=== PATIENT | female | born 1965 | race Caucasian/White ===

== ENCOUNTER 2021-04-23 15:57 | Emergency (ER) | payer OTHER, SELFPAY ==
[2021-04-23 16:03] VITALS: BP 143/76; PULSE 82; RESP 20; TEMP 36.3; O2SAT 96
--- NOTE | 2021-04-23 17:21 | ED.SKABFB ---
HPI - Skin/Abscess/Foreign Bdy General Chief complaint: Skin/Abscess/Foreign Body Stated complaint: Rash on Lips Source: patient and RN notes reviewed Limitations: no limitations History of Present Illness HPI narrative: The patient, on multiple meds including for diabetes and here with other 'sick' family members, presents with skin eruption. Patient states she has 1/2-week or more history of pink slightly raised skin eruption on her extremities after working outside and a different rash her lips. Symptoms there are mild, and attributed to recent change in lip balm; she has recently more sun/actinic exposure doing yard work. Discussed possible causes [allergic, infectious(yeast, viral, etc.), vitamin deficiency, etc.] and will treat broadly. She was advised to continue taking B12 and her antivirals prescribed for recurrent fever blisters. Related Data Home Medications Medication Instructions Recorded Confirmed acyclovir 400 mg PO DAILY 04/23/21 04/23/21 albuterol sulfate 2 puff INHALATION QID 04/23/21 04/23/21 buspirone 5 mg PO BID 04/23/21 04/23/21 cyclobenzaprine 10 mg PO TID 04/23/21 04/23/21 fluoxetine 40 mg PO DAILY 04/23/21 04/23/21 fluticasone propionate 2 spray INTRANASAL BID 04/23/21 04/23/21 hydrochlorothiazide 25 mg PO DAILY 04/23/21 04/23/21 ibuprofen 600 mg PO TID PRN 04/23/21 04/23/21 insulin glargine [Lantus U-100 20 unit SUBCUT HS 04/23/21 04/23/21 Insulin] metformin 500 mg PO TID 04/23/21 04/23/21 metoprolol tartrate 100 mg PO BID 04/23/21 04/23/21 mometasone-formoterol [Dulera] 2 puff INHALATION DAILY 04/23/21 04/23/21 montelukast 10 mg PO HS 04/23/21 04/23/21 omeprazole 20 mg PO BID 04/23/21 04/23/21 prazosin 2 mg PO DAILY 04/23/21 04/23/21 trazodone 50 mg PO BID 04/23/21 04/23/21 Allergies Allergy/AdvReac Type Severity Reaction Status Date / Time aspirin AdvReac Intermediate Nose Bleed Verified 04/23/21 16:20 lisinopril AdvReac Intermediate Cough Verified 04/23/21 16:20 Review of Systems Review of Systems: General/Constitutional: No weight loss,fever Eyes: N0: Redness,discharge Ears/Nose/Throat: No: Epistaxis,ear discharge Respiratory: Denies: Hemoptysis Gastrointestinal: No Vomiting, Bleeding-rectal Skin: No Lumps, REPORTS eruption Neurologic: No Focal Weakness,Sz Hematologic: Denies: Petechiae/Purpura Psychiatric: No: Suicida ideationl All Other Systems: Reviewed and Negative [facility] Family History Family History (System 11/28/19 @ 15:35 by Penelope Stokes) Sibling Depression Mother Asthma Family history of bronchitis Social History Social History (System 11/28/19 @ 15:35 by Penelope Stokes) Smoking status: Current every day smoker Comments At time of signature, agree with nursing past medical, surgical, social and family history. There is no relevant family history pertinent to the presenting complaint Exam Narrative: General Appearance: Well nourished/obese, Normocephalic Eye: PERRLA, Conjunctiva clear Ear: External ear normal Nose: Normal nose, Nare clear Mouth/Throat: Evenly distributed, finally blistering skin eruption on the lips Neck Exam: Supple Respiratory: Airway patent, No respiratory distress Musculoskeletal: Moves all extremities, Non tender Skin: Warm, Dry ; small, isolated macular papular skin eruption of left>right lower extremity Neurological: A&O x3 Psychiatric: Normal mood, Normal affect Course Vital Signs Vital signs: Vital Signs Temperature 97.4 F L 04/23/21 16:03 Pulse Rate 82 04/23/21 16:03 Respiratory Rate 20 04/23/21 16:03 Blood Pressure 143/76 H 04/23/21 16:03 Pulse Oximetry 96 04/23/21 16:03 Temperature 97.4 F L 04/23/21 16:03 Pulse Rate 82 04/23/21 16:03 Respiratory Rate 20 04/23/21 16:03 Blood Pressure 143/76 H 04/23/21 16:03 Pulse Oximetry 96 04/23/21 16:03 Discharge Plan Discharge Clinical Impression: Cheilitis, Folliculitis Patient Disposition: Home, Self-Care
== END 2021-04-23 17:28 | disposition home or self-care (01) ==
PROVIDERS: Emergency Provider Emergency Medicine; PCP Internal Medicine
DX: K13.0 Diseases of lips (principal); L73.9 Follicular disorder, unspecified; I10 Essential (primary) hypertension; J44.9 Chronic obstructive pulmonary disease, unspecified; G47.33 Obstructive sleep apnea (adult) (pediatric); K21.9 Gastro-esophageal reflux disease without esophagitis; E11.9 Type 2 diabetes mellitus without complications; D80.3 Selective deficiency of immunoglobulin G [IgG] subclasses; F41.9 Anxiety disorder, unspecified; F32.9 Major depressive disorder, single episode, unspecified
CPT/HCPCS: 99203; G0463

== ENCOUNTER 2022-06-04 10:46 | Emergency (ER) | payer OTHER, SELFPAY ==
[2022-06-04 11:12] VITALS: BP 139/73; PULSE 73; RESP 22; TEMP 36.1; O2SAT 96
--- NOTE | 2022-06-04 11:40 | ED.SKABFB ---
HPI - Skin/Abscess/Foreign Bdy General Chief complaint: Skin/Abscess/Foreign Body Stated complaint: leision on left arm Time Seen by Provider: 06/04/22 11:15 Source: patient Mode of arrival: ambulatory Limitations: no limitations History of Present Illness HPI narrative: Ms. Katz is a 56-year-old female patient presenting to the clinic today with complaints of sores to bilateral arms and bilateral legs. She reports she has had these sores for several months. Has been treated with antibiotics, steroids, and has been taking acyclovir for history of fever blisters. She reports that these sores seem to be spreading and not healing. She has been using peroxide on them as well as picking at them. Patient reports that the sores itch, burn, and weep. States the weeping is a yellowish discharge Related Data Home Medications Medication Instructions Recorded Confirmed acyclovir 400 mg tablet 400 mg PO DAILY 04/23/21 06/04/22 albuterol sulfate 90 mcg/actuation 2 puff inhalation QID 04/23/21 06/04/22 aerosol inhaler buspirone 5 mg tablet 5 mg PO BID 04/23/21 06/04/22 cyclobenzaprine 10 mg tablet 10 mg PO TID 04/23/21 06/04/22 fluoxetine 40 mg capsule 40 mg PO DAILY 04/23/21 06/04/22 fluticasone propionate 50 2 spray intranasal BID 04/23/21 06/04/22 mcg/actuation nasal spray,suspension hydrochlorothiazide 25 mg tablet 25 mg PO DAILY 04/23/21 06/04/22 ibuprofen 600 mg tablet 600 mg PO TID PRN Pain 04/23/21 06/04/22 insulin glargine 100 unit/mL 20 unit subcut HS 04/23/21 06/04/22 subcutaneous solution (Lantus U-100 Insulin) metformin 500 mg tablet 500 mg PO TID 04/23/21 06/04/22 metoprolol tartrate 100 mg tablet 100 mg PO BID 04/23/21 06/04/22 mometasone-formoterol HFA 100 2 puff inhalation DAILY 04/23/21 06/04/22 mcg-5 mcg/actuation aerosol inhaler (Dulera) montelukast 10 mg tablet 10 mg PO HS 04/23/21 06/04/22 omeprazole 20 mg capsule,delayed 20 mg PO BID 04/23/21 06/04/22 release prazosin 2 mg capsule 2 mg PO DAILY 04/23/21 06/04/22 trazodone 50 mg tablet 50 mg PO BID 04/23/21 06/04/22 Allergies Allergy/AdvReac Type Severity Reaction Status Date / Time aspirin AdvReac Intermediate Nose Bleed Verified 06/04/22 11:32 lisinopril AdvReac Intermediate Cough Verified 06/04/22 11:32 Review of Systems Review of Systems: Pertinent positives per HPI. Patient denies any fever, chills, headache, visual changes, dizziness, cough, runny nose, sore throat, shortness of breath, chest pain, palpitations, nausea, vomiting, diarrhea, constipation, abdominal pain, or any urinary issues. [facility] Family History Family History Sibling Depression Mother Asthma Family history of bronchitis Social History Social History Smoking status: Current every day smoker Comments At the time of my signature, I reviewed and agree with the nursing past medical, surgical, social, and family history. There is no relevant family history pertinent to the patient complaint. Exam Narrative: General: Well-developed, well nourished, in no apparent distress Head: Normocephalic, atraumatic. Cardio: Regular rate and rhythm, s1 and s2 normal, no murmur appreciated. Resp: Clear to auscultation bilaterally, no rhonchi, rales, wheezing or rubs. Integumentary: [place], warm, and dry, several open and scabbed over sores to bilateral forearms and bilateral lower legs-some of the sores have yellowish scabbing. Cultures were obtained of the left for arm and right ankle sores. Course Course Emergency Course: Portions of this record may have been created with voice recognition software. Level of Care: Express Care Visit Vital Signs Vital signs: Vital Signs Temperature 36.1 C L 06/04/22 11:12 Pulse Rate 73 06/04/22 11:12 Respiratory Rate 22 H 06/04/22 11:12 Blood Pressure 139/73 06/04/22 11:12 Pulse Oximetry 96
== END 2022-06-04 12:10 | disposition home or self-care (01) ==
PROVIDERS: Emergency Provider Nurse Practitioner Family
DX: L08.9 Local infection of the skin and subcutaneous tissue, unspecified (principal); B96.89 Other specified bacterial agents as the cause of diseases classified elsewhere; J44.9 Chronic obstructive pulmonary disease, unspecified; G47.30 Sleep apnea, unspecified; E11.9 Type 2 diabetes mellitus without complications; I10 Essential (primary) hypertension; F41.9 Anxiety disorder, unspecified; F32.A Depression, unspecified; Z79.84 Long term (current) use of oral hypoglycemic drugs; Z79.4 Long term (current) use of insulin
CPT/HCPCS: 87070; 87205; 99213; G0463

== ENCOUNTER 2022-07-01 11:50 | Emergency (ER) | payer OTHER, SELFPAY ==
--- NOTE | 2022-07-01 11:51 | ED.SKABFB ---
HPI - Skin/Abscess/Foreign Bdy General Chief complaint: Skin/Abscess/Foreign Body Stated complaint: Left arm Lesions Time Seen by Provider: 07/01/22 11:51 Source: patient Mode of arrival: ambulatory Limitations: no limitations History of Present Illness HPI narrative: Ms. Katz is a 56-year-old female patient presenting to the clinic today with complaints of skin sores to bilateral arms. She reports that over the last few days her skin sores have become worse to her left forearm. She reports that they are open and getting bigger however they are not weeping or having any discharge. She was seen by myself 1 month ago and given prescription for Hibiclens and doxycycline and was to follow-up with her PCP/dermatology however she states that she is unable to get into dermatology due to her insurance. She also did not berry picker the prescription for Hibiclens as she was not able to pay for the prescription. States that ulcerations are itching, burning and tingling. She is concerned that she may have shingles or chickenpox Related Data Home Medications Medication Instructions Recorded Confirmed acyclovir 400 mg tablet 400 mg PO DAILY 04/23/21 07/01/22 albuterol sulfate 90 mcg/actuation 2 puff inhalation QID 04/23/21 07/01/22 aerosol inhaler buspirone 5 mg tablet 5 mg PO BID 04/23/21 07/01/22 fluoxetine 40 mg capsule 40 mg PO DAILY 04/23/21 07/01/22 fluticasone propionate 50 2 spray intranasal BID 04/23/21 07/01/22 mcg/actuation nasal spray,suspension hydrochlorothiazide 25 mg tablet 25 mg PO DAILY 04/23/21 07/01/22 ibuprofen 600 mg tablet 600 mg PO TID PRN Pain 04/23/21 07/01/22 insulin glargine 100 unit/mL 20 unit subcut HS 04/23/21 07/01/22 subcutaneous solution (Lantus U-100 Insulin) metformin 500 mg tablet 500 mg PO TID 04/23/21 07/01/22 metoprolol tartrate 100 mg tablet 100 mg PO BID 04/23/21 07/01/22 mometasone-formoterol HFA 100 2 puff inhalation DAILY 04/23/21 07/01/22 mcg-5 mcg/actuation aerosol inhaler (Dulera) montelukast 10 mg tablet 10 mg PO HS 04/23/21 07/01/22 omeprazole 20 mg capsule,delayed 20 mg PO BID 04/23/21 07/01/22 release prazosin 2 mg capsule 2 mg PO DAILY 04/23/21 07/01/22 trazodone 50 mg tablet 50 mg PO BID 04/23/21 07/01/22 Allergies Allergy/AdvReac Type Severity Reaction Status Date / Time aspirin AdvReac Intermediate Nose Bleed Verified 07/01/22 11:56 lisinopril AdvReac Intermediate Cough Verified 07/01/22 11:56 Review of Systems Review of Systems: Pertinent positives per HPI. Patient denies any fever, chills, rash, headache, visual changes, dizziness, cough, runny nose, sore throat, shortness of breath, chest pain, palpitations, nausea, vomiting, diarrhea, constipation, abdominal pain, or any urinary issues. [facility] Family History Family History Sibling Depression Mother Asthma Family history of bronchitis Social History Social History Smoking status: Current every day smoker Comments At the time of my signature, I reviewed and agree with the nursing past medical, surgical, social, and family history. There is no relevant family history pertinent to the patient complaint. Exam Narrative: General: Well-developed, well nourished, in no apparent distress Head: Normocephalic, atraumatic. Cardio: Regular rate and rhythm, s1 and s2 normal, no murmur appreciated. Resp: Clear to auscultation bilaterally, no rhonchi, rales, wheezing or rubs. Integumentary: [place], warm, and dry, open red nonindurated ulcers measuring the 1 cm at the greatest to the left dorsal forearm-no discharge or weeping noted, tender to palpation Course Course Emergency Course: Portions of this record may have been created with voice recognition software. Level of Care: Express Care Visit Vital Signs Vital signs: Vital Signs Temperature 36.3 C L 07/01/22 11:54 Pulse
[2022-07-01 11:54] VITALS: BP 150/78; PULSE 86; RESP 20; TEMP 36.3; O2SAT 97
[2022-07-01 12:00] VITALS: BP 150/78; PULSE 86; RESP 20; TEMP 36.3; O2SAT 97
[2022-07-01] MEDS: SILVER SULFADIAZINE 1% CR 50 GM JAR (*BKC) 1 APPLIC TOPICAL (12:45)
== END 2022-07-01 12:56 | disposition home or self-care (01) ==
PROVIDERS: Emergency Provider Nurse Practitioner Family; PCP Internal Medicine
DX: L98.499 Non-pressure chronic ulcer of skin of other sites with unspecified severity (principal); F17.200 Nicotine dependence, unspecified, uncomplicated; E11.9 Type 2 diabetes mellitus without complications; I10 Essential (primary) hypertension; J44.9 Chronic obstructive pulmonary disease, unspecified; G47.30 Sleep apnea, unspecified; K21.9 Gastro-esophageal reflux disease without esophagitis; F41.9 Anxiety disorder, unspecified; F32.A Depression, unspecified; Z79.4 Long term (current) use of insulin; Z79.84 Long term (current) use of oral hypoglycemic drugs
CPT/HCPCS: 99213; A9270; G0463

== ENCOUNTER 2023-07-21 11:12 | Emergency (ER) | payer OTHER, SELFPAY ==
[2023-07-21 11:18] VITALS: BP 136/82; PULSE 88; RESP 16; TEMP 35.5; O2SAT 95
--- NOTE | 2023-07-21 11:51 | ED.SKABFB ---
HPI - Skin/Abscess/Foreign Bdy General Chief complaint: Skin/Abscess/Foreign Body Stated complaint: Skin Sore/Left Groin Time Seen by Provider: 07/21/23 11:20 Source: patient Mode of arrival: ambulatory Limitations: no limitations History of Present Illness HPI narrative: Kelley is a 57-year-old female patient presenting to the clinic today with complaints a skin sore in her left groin. She is having pain and pressure in the left groin. She reports she thought she may have had an infected hair sore in the left groin and attempted to pop it and squeeze it and it became more swollen and painful over the last 2 days. She reports some chills but no fever. Has been trying to pop it using a syringe needle. Related Data Home Medications Medication Instructions Recorded Confirmed acyclovir 400 mg tablet 400 mg PO DAILY 04/23/21 07/01/22 albuterol sulfate 90 mcg/actuation 2 puff inhalation QID 04/23/21 07/01/22 aerosol inhaler buspirone 5 mg tablet 5 mg PO BID 04/23/21 07/01/22 fluoxetine 40 mg capsule 40 mg PO DAILY 04/23/21 07/01/22 fluticasone propionate 50 2 spray intranasal BID 04/23/21 07/01/22 mcg/actuation nasal spray,suspension hydrochlorothiazide 25 mg tablet 25 mg PO DAILY 04/23/21 07/01/22 ibuprofen 600 mg tablet 600 mg PO TID PRN Pain 04/23/21 07/01/22 insulin glargine 100 unit/mL 20 unit subcut HS 04/23/21 07/01/22 subcutaneous solution (Lantus U-100 Insulin) metformin 500 mg tablet 500 mg PO TID 04/23/21 07/01/22 metoprolol tartrate 100 mg tablet 100 mg PO BID 04/23/21 07/01/22 mometasone-formoterol HFA 100 2 puff inhalation DAILY 04/23/21 07/01/22 mcg-5 mcg/actuation aerosol inhaler (Dulera) montelukast 10 mg tablet 10 mg PO HS 04/23/21 07/01/22 omeprazole 20 mg capsule,delayed 20 mg PO BID 04/23/21 07/01/22 release prazosin 2 mg capsule 2 mg PO DAILY 04/23/21 07/01/22 trazodone 50 mg tablet 50 mg PO BID 04/23/21 07/01/22 Allergies Allergy/AdvReac Type Severity Reaction Status Date / Time aspirin AdvReac Intermediate Nose Bleed Verified 07/21/23 11:37 lisinopril AdvReac Intermediate Cough Verified 07/21/23 11:37 Review of Systems Review of Systems: Pertinent positives per HPI. Patient denies any fever, chills, rash, headache, visual changes, dizziness, cough, runny nose, sore throat, shortness of breath, chest pain, palpitations, nausea, vomiting, diarrhea, constipation, abdominal pain, or any urinary issues. [facility] Past Medical History Medical History Anxiety Arthritis Asthma CAD (coronary artery disease) Diabetes GERD (gastroesophageal reflux disease) Hyperlipidemia Hypertension Inflammatory arthritis MYRNA (obstructive sleep apnea) Rash and nonspecific skin eruption Surgical History Surgical History History of bladder surgery Family History Family History Sibling Depression Mother Asthma Family history of bronchitis Social History Social History Smoking status: Current every day smoker Alcohol intake: current Substance use: never Substance use type: does not use Lack of Transportation: No Lack of Food: Never True Current Housing: I Have Housing Concerned About Future Housing: No Difficulty Paying Gas/Electric Bills: No Difficulty Paying for Meds: No Currently Unemployed: No Education: Decline to Answer Difficulty w/ Childcare or Family Care: No Living arrangements: with family Comments At the time of my signature, I reviewed and agree with the nursing past medical, surgical, social, and family history. There is no relevant family history pertinent to the patient complaint. Exam Narrative: General: Well-developed, obese, in no apparent distress Head: Normocephalic, atraumatic. Cardio: Regular ra
== END 2023-07-21 11:35 | disposition short-term general hospital (02) ==
PROVIDERS: Emergency Provider Nurse Practitioner Family; PCP Family Medicine
DX: L02.214 Cutaneous abscess of groin (principal); I25.10 Atherosclerotic heart disease of native coronary artery without angina pectoris; E11.9 Type 2 diabetes mellitus without complications; E78.5 Hyperlipidemia, unspecified; I10 Essential (primary) hypertension; J45.909 Unspecified asthma, uncomplicated; F17.210 Nicotine dependence, cigarettes, uncomplicated
CPT/HCPCS: 99212; G0463

== ENCOUNTER 2023-07-21 16:07 | Inpatient (IN) | payer OTHER, SELFPAY ==
--- NOTE | ~2023-07-21 | CT_ITS ---
EXAMINATION: CT abdomen pelvis w con DATE: 07/21/2023 18:00 INDICATION: Abdominal pain TECHNIQUE: Computed tomography (CT) of the abdomen and pelvis was performed with 100 cc Omnipaque 350 intravenous contrast. The dose-length product was 1658.59 mGy-cm. Automated exposure control and ite rative reconstruction technique were employed. COMPARISON: None. FINDINGS: Lung bases are unremarkable. Heart size normal. No significant pleural or pericardial effus ion. Heart size normal. Fatty infiltration of the liver. Gallbladder is present. The spleen, pancreas , adrenal glands and kidneys are unremarkable. Gallbladder is present. Small fat-containing umbilical hernia. No lymphadenopathy. Nonobstructive bowel gas pattern. Colonic diverticulosis without diverti culitis. There is fatty inflammatory changes in the left inguinal crease extending to the lower abdom inal wall. There is an irregular shaped fluid collection in the left lower anterior abdominal wall me asuring proximally 4 x 3 x 2.2 cm, suspicious for abscess. There are nonenlarged left inguinal lymph nodes, likely reactive. Severe lumbar spondylosis at L5-S1. IMPRESSION: 1. Moderate inflammatory changes of the left lower anterior abdominal wall extending to the inguinal crease with associated irregular fluid collection measuring 4 x 3 x 2.2 cm, suspicious for abscess. Reviewed, dictated and finalized at location A. IMPRESSION: 1. Moderate inflammatory changes of the left lower anterior abdominal wall exte nding to the inguinal crease with associated irregular fluid collection measuri ng 4 x 3 x 2.2 cm, suspicious for abscess.
--- NOTE | ~2023-07-21 | XR_ITS ---
EXAMINATION: XR chest 2V DATE: 07/22/2023 07:47 INDICATION: Hypertension. Preop. TECHNIQUE: Frontal and lateral views of the chest were obtained. COMPARISON: Chest 2 views 02/18/16 FINDINGS: There is no pneumonia, pleural effusion, or pneumothorax. The heart size is normal. IMPRESSION: 1. No acute cardiopulmonary disease. Reviewed, dictated and finalized at location E.
[2023-07-21 16:12] VITALS: BP 170/80; PULSE 102; RESP 20; TEMP 36.4; O2SAT 97
[2023-07-21 16:32] LABS: Basophils Absolute Auto 0.1 K/mm3 (0.0-0.1); Basophils Percent Auto 0.4 % (0.2-1.2); Eosinophils Absolute Auto 0.1 K/mm3 (0-0.3); Eosinophils Percent Auto 0.9 % (0-4.4); Hematocrit 39.3 % (37.0-47.0); Hemoglobin 11.5 g/dL (12.0-15.0); Immature Granulocyte Absolute 0.06 K/mm3 (0.00-0.031); Immature Granulocyte Percent A 0.4 % (0-0.5); Lymphocytes Absolute Auto 1.57 K/mm3 (0.9-3.2); Lymphocytes Percent Auto 11.2 % (18.3-44.2); Mean Corpuscular HGB Conc 29.3 g/dl (32-36); Mean Corpuscular Hemoglobin 21.3 pg (26-34); Mean Corpuscular Volume 72.6 fl (80-100); Mean Platelet Volume 9.6 fl (7.4-10.4); Monocytes Absolute Auto 0.9 K/mm3 (0.1-0.6); Monocytes Percent Auto 6.1 % (2.6-8.5); Neutrophils Absolute Auto 11.3 K/mm3 (1.3-6.7); Platelet Count Result 354 k/mm3 (150-375); Red Blood Count 5.41 M/mm3 (4.2-5.4); Red Cell Distribution Width 18.2 % (11.5-14.5)
[2023-07-21 16:44] LABS: Alanine Aminotransferase 77 U/L (6-35); Albumin Level 4.4 g/dL (3.5-5.1); Alkaline Phosphatase 118 U/L (38-126); Anion Gap 9 mmol/L (8-16); Aspartate Amino Transferase 38 U/L (14-36); Bilirubin,Total 0.7 mg/dL (0.2-1.3); Blood Urea Nitrogen 16 mg/dL (7-17); Calcium 9.6 mg/dL (8.4-10.2); Carbon Dioxide 26 mmol/L (22-30); Chloride 96 mmol/L (98-107); Estimated CRCL calculation 119 ml/min; Estimated Glomerular Filt Rate > 60; Glucose 308 mg/dL (65-110); Lipase 77 U/L (23-300); Potassium 4.1 mmol/L (3.4-5.0); Sodium 131 mmol/L (137-145)
[2023-07-21 16:46] LABS: Glucose Point of Care 315 mg/dl (65-105)
[2023-07-21 16:57] LABS: Anisocytosis 1+ (NORMAL); Hypochromasia 1+ (NORMAL); Microcytosis 1+ (NORMAL); Platelet Estimate Adequate (Adequate)
[2023-07-21 16:58] LABS: Ovalocytes 1+ (NORMAL); Schistocytes None Seen (NORMAL); Stomatocytes 1+ (NORMAL)
[2023-07-21] MEDS: CLINDAMYCIN 600 MG/D5W 50 ML 600 MG/50 ML PIGGYBACK 100 MG IVPB (17:43)
[2023-07-21 17:48] LABS: Appearance Urine Turbid (Clear); Bacteria Urine 3+ /hpf; Bilirubin Urine Negative (Negative); Blood Urine Negative (Negative); Color Urine Yellow (Yellow); Glucose Urine UA 3+ mg/dL (Negative); Ketones Urine 1+ mg/dL (Negative); Leukocyte Esterase Ur Trace LEU/UL (Negative); Need Manual Microscopic Reviewed; Nitrate Urine Negative (Negative); Protein Urine 1+ mg/dL (Negative); Squamous Epithelial Cell Urine Many /hpf (Few); WBC Urine 21-50 /hpf
[2023-07-21 17:49] LABS: Specific Grav Ur 1.044 (1.001-1.035)
[2023-07-21 17:53] LABS: Add Urine Microscopic? YES
[2023-07-21] MEDS: KETOROLAC 15 MG/ML VIAL (*BKC) IV PUSH (18:25)
--- NOTE | 2023-07-21 18:27 | ED.GENADULT ---
HPI - General Adult General Chief complaint: Skin/Abscess/Foreign Body Stated complaint: abscess L groin/abd pain Time Seen by Provider: 07/21/23 17:09 Source: patient Mode of arrival: ambulatory Limitations: no limitations History of Present Illness HPI narrative: 57-year-old with a history of hypertension, diabetes here with complaints of pain, swelling and redness to her left lower abdomen and in the pubic area for past few days. Patient states that she went to urgent care this morning and was later referred to the ER. She denies having any fever. She states that she had a small pimple in the pubic area which she pinched and got some pus out. Onset (ago): day(s) (2) Severity: moderate Quality: aching Pain Consistency: constant Relieving factors: none Exacerbating factors: none Associated symptoms: denies other symptoms Treatments prior to arrival: NSAID Related Data Home Medications Medication Instructions Recorded Confirmed acyclovir 400 mg tablet 400 mg PO DAILY 04/23/21 07/01/22 albuterol sulfate 90 mcg/actuation 2 puff inhalation QID 04/23/21 07/01/22 aerosol inhaler buspirone 5 mg tablet 5 mg PO BID 04/23/21 07/01/22 fluoxetine 40 mg capsule 40 mg PO DAILY 04/23/21 07/01/22 fluticasone propionate 50 2 spray intranasal BID 04/23/21 07/01/22 mcg/actuation nasal spray,suspension hydrochlorothiazide 25 mg tablet 25 mg PO DAILY 04/23/21 07/01/22 ibuprofen 600 mg tablet 600 mg PO TID PRN Pain 04/23/21 07/01/22 insulin glargine 100 unit/mL 20 unit subcut HS 04/23/21 07/01/22 subcutaneous solution (Lantus U-100 Insulin) metformin 500 mg tablet 500 mg PO TID 04/23/21 07/01/22 metoprolol tartrate 100 mg tablet 100 mg PO BID 04/23/21 07/01/22 mometasone-formoterol HFA 100 2 puff inhalation DAILY 04/23/21 07/01/22 mcg-5 mcg/actuation aerosol inhaler (Dulera) montelukast 10 mg tablet 10 mg PO HS 04/23/21 07/01/22 omeprazole 20 mg capsule,delayed 20 mg PO BID 04/23/21 07/01/22 release prazosin 2 mg capsule 2 mg PO DAILY 04/23/21 07/01/22 trazodone 50 mg tablet 50 mg PO BID 04/23/21 07/01/22 Allergies Allergy/AdvReac Type Severity Reaction Status Date / Time aspirin AdvReac Intermediate Nose Bleed Verified 07/21/23 11:37 lisinopril AdvReac Intermediate Cough Verified 07/21/23 11:37 Review of Systems Review of Systems: All systems reviewed & are unremarkable except as noted in HPI and below Constitutional: Constitutional: Reports no additional constitutional complaints Eyes: Eyes: Reports no additional eye complaints ENT: Reports system reviewed and no additional complaints, except as documented Cardiovascular: Cardiovascular: Reports no additional cardiovascular complaints Respiratory: Respiratory: Reports no additional respiratory complaints Gastrointestinal: Gastrointestinal: Reports as per HPI Musculoskeletal: Musculoskeletal: Reports no additional musculoskeletal complaints Integumentary/Breasts: Skin/Breast: Reports as per HPI Neurologic: Reports system reviewed and no additional complaints, except as documented Psychiatric: Psychiatric: Reports no additional psychiatric complaints PMFSH Past Medical History Medical History Anxiety Arthritis Asthma CAD (coronary artery disease) Diabetes GERD (gastroesophageal reflux disease) Hyperlipidemia Hypertension Inflammatory arthritis MYRNA (obstructive sleep apnea) Rash and nonspecific skin eruption Surgical History Surgical History History of bladder surgery Family History Family History Sibling Depression Mother Asthma Family history of bronchitis Social History Social History Smoking status: Current every day smoker Alcohol intake: current Substance use: never Substance use type: does not use Lack of Tr
[2023-07-21 18:34] VITALS: PULSE 93; RESP 20; O2SAT 95
[2023-07-21 19:03] LABS: Glucose Point of Care 236 mg/dl (65-105)
[2023-07-21 19:52] VITALS: BMI 37.8
[2023-07-21 20:00] VITALS: BP 146/70; PULSE 107; RESP 22; TEMP 37; O2SAT 96; BMI 38.2
[2023-07-21 20:13] LABS: Glucose Point of Care 331 mg/dl (65-105)
--- NOTE | 2023-07-21 20:14 | ADMGEN ---
This patient, Kelley Katz, was admitted to 3 [facility] Surg Room 327-01. Patient/family oriented to hospital policies and general routines including ID bracelet, bed and alarms, visiting hours, pain management, procedures, bathroom and other care routines, personal items, smoking policy, room service/diet, and visiting hours. Information on how to activate the Rapid Response Team has been discussed. Patient/Family are encouraged to report perceived risks to care and to ask questions if they do not understand what they are told or what they should do.
[2023-07-21] MEDS: ceFAZolin 1 GM/NS 50 ML 1 GM/50 ML BAG IVPB (21:29)
[2023-07-21] MEDS: HYDROcodone/acetaminophen (*CRX) 5-325 MG TABLET 1 TAB PO (21:29)
[2023-07-21] MEDS: ONDANSETRON INJ 4 MG/2 ML VIAL IV PUSH (21:29)
[2023-07-22] VITALS (7 sets, daily range): BP systolic 123–142; BP diastolic 58–73; PULSE 83–106; RESP 17–20; TEMP 35.8–36.8; O2SAT 90–96
[2023-07-22] MEDS: SODIUM CHLORIDE 0.9% IV 1,000 ML 125 ML IV CONT ×2 (02:52→13:47)
[2023-07-22] MEDS: ceFAZolin 1 GM/NS 50 ML 1 GM/50 ML BAG IVPB ×3 (05:51→21:33)
[2023-07-22] MEDS: HYDROcodone/acetaminophen (*CRX) 5-325 MG TABLET 1 TAB PO ×5 (05:52→21:32)
--- NOTE | 2023-07-22 06:16 | PM.IMHP ---
H&P: HPI History of Present Illness Date/Time: 07/22/23 06:16 Chief Complaint: Patient transferred to the ER for evaluation by urgent care with complaint of worsening sore in the left groin Narrative: She is an anxious looking 57 years old obese female who is complaining of a sore in her left groin for the last 3 days. It started as the swelling on the left side of the groin which she thought was a pimple due to hair growth. She poked at it and some pus came out and in reduced to half its size. Over the last couple of days, it is growing bigger and harder and is associated with low-grade fever and pain. She got concerned and went to the urgent care who diagnosed it as an abscess and transferred to our ER for evaluation. Workup was done in the ER and left lower anterior abdominal wall abscess was confirmed with CT scan. Patient was advised to get admitted for surgical evaluation for possible I&D. She initially declined admission as she wanted to go home as a she has a dog in the crate and she lives alone. When the ER doctor discussed with her about the CT findings, she decided to stay. She is being admitted for surgical evaluation in am for possible I&D. Review of Systems Review of Systems: she denies chest pain, palpitations, loss of consciousness or falls All systems reviewed & are unremarkable except as noted in HPI and below PMFSH Past Medical History Medical History (Updated 07/22/23 @ 06:28 by Sumeet Edwards MD) Anxiety Arthritis Asthma CAD (coronary artery disease) Diabetes GERD (gastroesophageal reflux disease) Hyperlipidemia Hypertension Inflammatory arthritis Obesity MYRNA (obstructive sleep apnea) Rash and nonspecific skin eruption Surgical History Surgical History History of bladder surgery Family History Family History Sibling Depression Mother Asthma Family history of bronchitis Social History Social History Smoking status: Current every day smoker Alcohol intake: current Drinks per week: 1 Substance use: never Substance use type: does not use Lack of Transportation: No Lack of Food: Never True Current Housing: I Have Housing Concerned About Future Housing: No Difficulty Paying Gas/Electric Bills: No Difficulty Paying for Meds: No Currently Unemployed: No Education: Decline to Answer Difficulty w/ Childcare or Family Care: No Living arrangements: with family Spiritual care concerns: No Meds Home Medications and Allergies Home Medications Medication Instructions Recorded Confirmed Type acyclovir 400 mg tablet 400 mg PO DAILY 04/23/21 07/21/23 History albuterol sulfate 90 mcg/actuation 2 puff inhalation QID 04/23/21 07/21/23 History aerosol inhaler buspirone 5 mg tablet 5 mg PO BID 04/23/21 07/21/23 History fluoxetine 40 mg capsule 40 mg PO DAILY 04/23/21 07/21/23 History fluticasone propionate 50 2 spray intranasal BID 04/23/21 07/21/23 History mcg/actuation nasal spray,suspension ibuprofen 600 mg tablet 600 mg PO TID PRN Pain 04/23/21 07/21/23 History insulin glargine 100 unit/mL 80 unit subcut HS 04/23/21 07/21/23 History subcutaneous solution (Lantus U-100 Insulin) metoprolol tartrate 100 mg tablet 100 mg PO DAILY 04/23/21 07/21/23 History mometasone-formoterol HFA 100 2 puff inhalation DAILY 04/23/21 07/21/23 History mcg-5 mcg/actuation aerosol inhaler (Dulera) montelukast 10 mg tablet 10 mg PO HS 04/23/21 07/21/23 History omeprazole 20 mg capsule,delayed 20 mg PO BID 04/23/21 07/21/23 History release prazosin 2 mg capsule 2 mg PO HS 04/23/21 07/21/23 History trazodone 50 mg tablet 50 mg PO BID 04/23/21 07/21/23 History chlorhexidine gluconate 4 % 1 applic topical ONCE 30 days #237 06/04/22 07/21/23 Rx topical liquid (Hibiclens) mL Allergies Allergy/AdvReac
[2023-07-22 06:32] LABS: Basophils Percent Auto 0.4 % (0.2-1.2); Eosinophils Absolute Auto 0.2 K/mm3 (0-0.3); Eosinophils Percent Auto 1.8 % (0-4.4); Hematocrit 37.1 % (37.0-47.0); Hemoglobin 10.4 g/dL (12.0-15.0); Immature Granulocyte Absolute 0.06 K/mm3 (0.00-0.031); Immature Granulocyte Percent A 0.6 % (0-0.5); Lymphocytes Absolute Auto 1.72 K/mm3 (0.9-3.2); Mean Corpuscular Hemoglobin 21.1 pg (26-34); Mean Corpuscular Volume 75.1 fl (80-100); Mean Platelet Volume 9.8 fl (7.4-10.4); Monocytes Absolute Auto 0.8 K/mm3 (0.1-0.6); Monocytes Percent Auto 7.7 % (2.6-8.5); Neutrophils Absolute Auto 7.3 K/mm3 (1.3-6.7); Neutrophils Percent Auto 72.5 % (45.5-73.1); Platelet Count Result 321 k/mm3 (150-375); Red Blood Count 4.94 M/mm3 (4.2-5.4); Red Cell Distribution Width 17.9 % (11.5-14.5); White Blood Count 10.1 K/mm3 (4.5-10.0)
[2023-07-22 06:42] LABS: Anion Gap 5 mmol/L (8-16); Blood Urea Nitrogen 14 mg/dL (7-17); Calcium 8.8 mg/dL (8.4-10.2); Carbon Dioxide 30 mmol/L (22-30); Chloride 98 mmol/L (98-107); Estimated CRCL calculation 119 ml/min; Estimated Glomerular Filt Rate > 60; Glucose 295 mg/dL (65-110); Potassium 3.9 mmol/L (3.4-5.0); Sodium 133 mmol/L (137-145)
--- NOTE | 2023-07-22 06:44 | ECG_ITS ---
Measurements Intervals [place] Rate: 101 P: 64 MO: 157 QRS: 72 QRSD: 87 T: 55 QT: 389 QTc: 505 Interpretive Statements SINUS TACHYCARDIA BORDERLINE ECG NO PREVIOUS ECG AVAILABLE FOR COMPARISON Electronically Signed On 07-22-2023 7:55:08 CDT by Ap Ramirez D.O.
[2023-07-22 07:21] LABS: Platelet Estimate Adequate (Adequate)
[2023-07-22 07:22] LABS: Anisocytosis 1+ (NORMAL); Hypochromasia 1+ (NORMAL); Ovalocytes 1+ (NORMAL); Schistocytes None Seen (NORMAL)
[2023-07-22 08:11] LABS: Glucose Point of Care 292 mg/dl (65-105)
[2023-07-22] MEDS: ONDANSETRON INJ 4 MG/2 ML VIAL IV PUSH (08:18)
[2023-07-22] MEDS: MORPHINE SULFATE (*CRX) 2 MG/ML INJ IV PUSH ×4 (08:19→20:23)
[2023-07-22] MEDS: INSULIN ASPART (*BKC) 100 UNITS/ML SUB-Q ×3 (08:19→17:15)
[2023-07-22] MEDS: PANTOPRAZOLE 40 MG TABLET PO ×2 (08:23→21:32)
[2023-07-22] MEDS: FLUoxetine HCL 20 MG CAPSULE 40 MG PO (08:23)
[2023-07-22] MEDS: busPIRone HCL 5 MG TABLET PO ×2 (08:23→17:18)
[2023-07-22] MEDS: ACYCLOVIR 400 MG TABLET PO (08:23)
[2023-07-22] MEDS: METOPROLOL TARTRATE 50 MG TAB 100 MG PO (08:27)
[2023-07-22 10:01] LABS: Hemoglobin A1C 11.9 % (<5.7)
[2023-07-22] MEDS: FLUTICASONE PROPIONATE 0.05% NA SPR 16 GM BTL (*BKC) 2 SPRAY NASAL (11:37)
--- NOTE | 2023-07-22 12:07 | PM.IMPN ---
Progress Note: A&P Assessment and Plan (1) Abdominal wall abscess: Code(s): L02.211 - Cutaneous abscess of abdominal wall Status: Acute Plan surgery to see still. she likely needs I&D. continue cefazolin. wbc downtrending, continue to monitor Subjective Date/time seen: 07/22/23 12:07 Interval history: NAOE. pt is amenable to staying now, seeing how serious her infection is. she has pain but on touch of the infection. Review of Systems Review of Systems: All systems reviewed & are unremarkable except as noted in HPI and below Exam Const: General: comfortable and no acute distress Resp: Effort & Inspection: normal respiratory effort Auscultation: clear to auscultation bilaterally Cardio: Rate: regular rate Rhythm: regular rhythm GI: GI Palp: Yes Soft to palpation Other: indurated left pelvic skin fold w/ surrounding erythema Objective Data Vital Signs Vital Signs: Vital Signs - 24 hr 07/21/23 16:12 07/21/23 18:34 07/21/23 20:00 Temperature 97.6 F 98.6 F Pulse Rate 102 H 93 107 H Respiratory Rate 20 20 22 H Blood Pressure 170/80 H 146/70 H Pulse Oximetry 97 95 96 Oxygen Delivery Room Air 07/22/23 05:00 07/22/23 08:27 07/22/23 08:00 Temperature 97 F L Pulse Rate 101 H 106 H Respiratory Rate 18 Blood Pressure 123/58 L Pulse Oximetry 96 96 Oxygen Delivery Room Air Intake/Output Intake/Output: Intake & Output 07/19/23 07/20/23 07/21/23 07/22/23 23:59 23:59 23:59 23:59 Intake Total 100 550 Output Total 1300 Balance 100 -750 Meds/Results Medications: Active Medications Generic Name Dose Route Start Last Admin Trade Name Freq PRN Reason Stop Dose Admin Hydrocodone Bitart/Acetaminophen 1 tab 07/21/23 18:33 07/22/23 10:23 Hydrocodone/Acetaminophen (*Crx) 5-325 Mg Tablet PO 1 tab Q4H PRN Administration Pain Rated 4-6 Acyclovir 400 mg 07/22/23 09:00 07/22/23 08:23 Acyclovir 400 Mg Tablet PO 400 mg DAILY MANUEL Administration Al Hydrox/Mg Hydrox/Simethicone 30 ml 07/22/23 06:44 Mag Hydrox/Al Hydrox/Simeth 30 Ml Udc PO QID PRN Dyspepsia Albuterol 2 puff 07/22/23 08:00 Albuterol Sulfate (*Sp) Aerosol 1 Puff INHALATION QIDRT MANUEL Buspirone HCl 5 mg 07/22/23 09:00 07/22/23 08:23 Buspirone Hcl 5 Mg Tablet PO 5 mg BID MANUEL Administration Chlorhexidine Gluconate 1 applic 07/22/23 06:50 Chlorhexidine Gluconate 4% Jordyn 120 Ml Btl TOPICAL ONCE MANUEL Dextrose 12.5 gm 07/22/23 06:50 Dextrose 50% 25 Gm/50 Ml Syringe IV PUSH PRN PRN Hypoglycemia Protocol Fluoxetine HCl 40 mg 07/22/23 09:00 07/22/23 08:23 Fluoxetine Hcl 20 Mg Capsule PO 40 mg DAILY MANUEL Administration Fluticasone Propionate 2 spray 07/22/23 09:00 07/22/23 11:37 Fluticasone Propionate 0.05% Na Spr 16 Gm Btl (*Bkc) NASAL 2 spray Q12HR MANUEL Administration Glucagon 1 mg 07/22/23 06:50 Glucagon For Inj 1 Mg Vial IM PRN PRN Hypoglycemia Protocol Glucose 15 gm 07/22/23 06:50 Glucose Oral Gel 15 Gm Of Glucse In 37.5 Gm Tube PO PRN PRN Hypoglycemia Protocol Sodium Chloride 1,000 mls @ 125 mls/hr 07/21/23 18:35 07/22/23 02:52 Normal Saline Iv IV CONT 125 mls/hr .Q8H MANUEL Administration Cefazolin Sodium 1 gm in 50 mls @ 100 mls/hr 07/21/23 22:00 07/22/23 05:51 Ancef 1 Gm/Ns 50 Ml IVPB 100 mls/hr Q8HR MANUEL Administration Dextrose 1,000 mls @ 100 mls/hr 07/22/23 06:50 Dextrose 5% 1,000 Ml IVPB PRN PRN Hypoglycemia Protocol Insulin Aspart 2 - 5 units 07/22/23 08:00 07/22/23 12:01 Insulin Aspart (*Bkc) 100 Units/Ml SUB-Q 4 units TIDWM MANUEL Administration Protocol Insulin Glargine 80 units 07/22/23 21:00 Insulin Glargine (*Bkc) 100 Units/Ml SUB-Q HS [facility] Metoprolol Tartrate 100 mg 07/22/23 09:00 07/22/23 08:27 Metoprolol Tartrate 50 Mg Tab PO 100 mg DAILY MANUEL Admi
[2023-07-22 12:08] LABS: Glucose Point of Care 319 mg/dl (65-105)
[2023-07-22] MEDS: CYCLOBENZAPRINE HCL 10 MG TABLET PO ×2 (13:46→21:44)
[2023-07-22] MEDS: LORazepam INJ (*CRX) 2 MG/ML VIAL 1 MG IV PUSH (16:42)
[2023-07-22] MEDS: HYDROmorphone HCL INJ (*CRX) 1 MG/ML SYR IV PUSH (16:43)
--- NOTE | 2023-07-22 17:07 | PM.CNGS ---
Assessment and Plan Assessment and plan (1) Abdominal wall abscess: Code(s): L02.211 - Cutaneous abscess of abdominal wall Status: Acute Assessment and Plan: will I and D at bedside, will obtain cx, cont abx, local wound care (2) Diabetes: Code(s): E11.9 - Type 2 diabetes mellitus without complications Status: Acute Assessment and Plan: tight bs control History of Present Illness Consult details Consult date: 07/22/23 Reason for consult: wound care Requesting physician: Doc Valdez MD Narrative: The patient is a 57-year-old female that presented to the emergency department complaining of severe left groin pain. The patient reports she had an ingrown hair about a week ago in that area. The patient reports the area soon became very inflamed and painful. She reports that she was able to squeeze some purulent material out of the area. Despite local treatment and compresses the area continued to get worse. Evaluation in the emergency department, including imaging, is significant for large abscess in the left groin. Review of Systems Review of Systems: All systems reviewed & are unremarkable except as noted in HPI and below PMFSH Past Medical History Medical History Anxiety Arthritis Asthma CAD (coronary artery disease) Diabetes GERD (gastroesophageal reflux disease) Hyperlipidemia Hypertension Inflammatory arthritis Obesity MYRNA (obstructive sleep apnea) Rash and nonspecific skin eruption Surgical History Surgical History History of bladder surgery Family History Family History Sibling Depression Mother Asthma Family history of bronchitis Social History Social History Smoking status: Current every day smoker Alcohol intake: current Drinks per week: 1 Substance use: never Substance use type: does not use Lack of Transportation: No Lack of Food: Never True Current Housing: I Have Housing Concerned About Future Housing: No Difficulty Paying Gas/Electric Bills: No Difficulty Paying for Meds: No Currently Unemployed: No Education: Decline to Answer Difficulty w/ Childcare or Family Care: No Living arrangements: with family Spiritual care concerns: No Meds Home Medications and Allergies Home Medications Medication Instructions Recorded Confirmed Type acyclovir 400 mg tablet 400 mg PO DAILY 04/23/21 07/21/23 History albuterol sulfate 90 mcg/actuation 2 puff inhalation QID 04/23/21 07/21/23 History aerosol inhaler buspirone 5 mg tablet 5 mg PO BID 04/23/21 07/21/23 History fluoxetine 40 mg capsule 40 mg PO DAILY 04/23/21 07/21/23 History fluticasone propionate 50 2 spray intranasal BID 04/23/21 07/21/23 History mcg/actuation nasal spray,suspension ibuprofen 600 mg tablet 600 mg PO TID PRN Pain 04/23/21 07/21/23 History insulin glargine 100 unit/mL 80 unit subcut HS 04/23/21 07/21/23 History subcutaneous solution (Lantus U-100 Insulin) metoprolol tartrate 100 mg tablet 100 mg PO DAILY 04/23/21 07/21/23 History mometasone-formoterol HFA 100 2 puff inhalation DAILY 04/23/21 07/21/23 History mcg-5 mcg/actuation aerosol inhaler (Dulera) montelukast 10 mg tablet 10 mg PO HS 04/23/21 07/21/23 History omeprazole 20 mg capsule,delayed 20 mg PO BID 04/23/21 07/21/23 History release prazosin 2 mg capsule 2 mg PO HS 04/23/21 07/21/23 History trazodone 50 mg tablet 50 mg PO BID 04/23/21 07/21/23 History chlorhexidine gluconate 4 % 1 applic topical ONCE 30 days #237 06/04/22 07/21/23 Rx topical liquid (Hibiclens) mL cyclobenzaprine 10 mg tablet 10 mg PO TID PRN Spasms 07/22/23 07/22/23 History Allergies Allergy/AdvReac Type Severity Reaction Status Date / Time aspirin AdvReac Intermediate Nose B
[2023-07-22 17:14] LABS: Glucose Point of Care 320 mg/dl (65-105)
--- NOTE | 2023-07-22 17:22 | W.PM.PROC2 ---
Procedure Note - Detailed Date of Procedure 07/22/23 Pre-op Diagnosis Left groin abscess measuring 7 x 5 cm Post-op Diagnosis Same Procedure Performed Complex incision and drainage left groin abscess measuring 7 x 5 cm contained within the subcutaneous tissue Surgeon Estefani Bob MD Anesthesia Local Indications 57-year-old female presenting to the emergency department complaining worsening left groin abscess. Findings 7 x 5 cm left groin abscess, large amount of purulent drainage Description of Procedure The patient was placed in the supine position. Local anesthetic was placed around this abscess cavity. The patient was then prepped and draped in the normal sterile fashion. A time-out was then to done verify the patient's identity, as well as the procedure being performed. I began by making incision over the most fluctuant area of this abscess. This was taken down through the dermis into the subcutaneous tissue. I encountered the abscess cavity and a large amount of purulent drainage was immediately expressed. Sterile cultures were obtained at this point. I then used a hemostat to break up further loculations and further drainage was obtained. Once the cavity was completely explored and drained it measures approximately 7 x 5 cm. I then packed the cavity with half-inch iodoform. Sterile dressing was placed. The patient tolerated the procedure well. She was alert and awake in her room. Estimated Blood Loss 5 Packing Yes Pathology Yes Complications No immediate complications Condition Stable Disposition Floor [facility] Billing Surgery - Charge Forward: Surgery Billing
[2023-07-22] MEDS: FLUTICASONE/SALMETEROL 115-21 MCG INHALER 1 PUFF 2 PUFF INHALATION (20:32)
[2023-07-22] MEDS: ALBUTEROL SULFATE (*SP) AEROSOL 1 PUFF 2 PUFF INHALATION (20:33)
[2023-07-22 20:58] LABS: Glucose Point of Care 319 mg/dl (65-105)
[2023-07-22] MEDS: traZODone HCL 50 MG TABLET 100 MG PO (21:32)
[2023-07-22] MEDS: PRAZOSIN HCL 1 MG CAPSULE 2 MG PO (21:33)
[2023-07-22] MEDS: MONTELUKAST SODIUM 10 MG TABLET PO (21:33)
[2023-07-23] VITALS (13 sets, daily range): BP systolic 109–139; BP diastolic 49–78; PULSE 72–122; RESP 16–22; TEMP 36.3–37.3; O2SAT 92–98
[2023-07-23] MEDS: MORPHINE SULFATE (*CRX) 2 MG/ML INJ IV PUSH ×6 (00:07→22:00)
[2023-07-23] MEDS: ONDANSETRON INJ 4 MG/2 ML VIAL IV PUSH (00:07)
[2023-07-23] MEDS: INSULIN GLARGINE (*BKC) 100 UNITS/ML 80 UNITS SUB-Q ×2 (00:14→20:40)
[2023-07-23] MEDS: HYDROcodone/acetaminophen (*CRX) 5-325 MG TABLET 1 TAB PO ×5 (02:10→20:19)
[2023-07-23] MEDS: SODIUM CHLORIDE 0.9% IV 1,000 ML 125 ML IV CONT (03:00)
[2023-07-23] MEDS: ALBUTEROL SULFATE (*SP) AEROSOL 1 PUFF 2 PUFF INHALATION ×2 (05:32→20:08)
[2023-07-23 05:49] LABS: Basophils Percent Auto 0.3 % (0.2-1.2); Eosinophils Absolute Auto 0.1 K/mm3 (0-0.3); Eosinophils Percent Auto 0.6 % (0-4.4); Hematocrit 33.1 % (37.0-47.0); Hemoglobin 9.3 g/dL (12.0-15.0); Immature Granulocyte Absolute 0.06 K/mm3 (0.00-0.031); Immature Granulocyte Percent A 0.5 % (0-0.5); Lymphocytes Absolute Auto 0.76 K/mm3 (0.9-3.2); Lymphocytes Percent Auto 6.1 % (18.3-44.2); Mean Corpuscular HGB Conc 28.1 g/dl (32-36); Mean Corpuscular Hemoglobin 21.4 pg (26-34); Mean Corpuscular Volume 76.1 fl (80-100); Mean Platelet Volume 9.7 fl (7.4-10.4); Monocytes Absolute Auto 0.5 K/mm3 (0.1-0.6); Monocytes Percent Auto 4.2 % (2.6-8.5); Neutrophils Percent Auto 88.3 % (45.5-73.1); Nucleated Red Blood Cells Perc 0.2 % (0.0-0.2); Platelet Count Result 303 k/mm3 (150-375); Red Blood Count 4.35 M/mm3 (4.2-5.4); Red Cell Distribution Width 17.4 % (11.5-14.5); White Blood Count 12.5 K/mm3 (4.5-10.0)
[2023-07-23 05:59] LABS: Anion Gap 6 mmol/L (8-16); Blood Urea Nitrogen 11 mg/dL (7-17); Calcium 8.4 mg/dL (8.4-10.2); Carbon Dioxide 29 mmol/L (22-30); Chloride 95 mmol/L (98-107); Estimated CRCL calculation 104 ml/min; Estimated Glomerular Filt Rate > 60; Glucose 284 mg/dL (65-110); Magnesium 1.7 mg/dL (1.6-2.3); Phosphorus 3.1 mg/dL (2.5-4.5); Potassium 4.1 mmol/L (3.4-5.0); Sodium 130 mmol/L (137-145)
[2023-07-23 06:27] LABS: Anisocytosis 1+ (NORMAL); Hypochromasia 1+ (NORMAL); Platelet Estimate Adequate (Adequate); Schistocytes None Seen (NORMAL)
[2023-07-23] MEDS: ceFAZolin 1 GM/NS 50 ML 1 GM/50 ML BAG IVPB ×3 (06:55→21:05)
[2023-07-23 08:09] LABS: Glucose Point of Care 250 mg/dl (65-105)
[2023-07-23] MEDS: METOPROLOL TARTRATE 50 MG TAB 100 MG PO (08:34)
[2023-07-23] MEDS: ACYCLOVIR 400 MG TABLET PO (08:34)
[2023-07-23] MEDS: busPIRone HCL 5 MG TABLET PO ×2 (08:34→17:09)
[2023-07-23] MEDS: CYCLOBENZAPRINE HCL 10 MG TABLET PO ×2 (08:34→16:57)
[2023-07-23] MEDS: FLUoxetine HCL 20 MG CAPSULE 40 MG PO (08:34)
[2023-07-23] MEDS: PANTOPRAZOLE 40 MG TABLET PO ×2 (08:35→20:39)
[2023-07-23] MEDS: FLUTICASONE/SALMETEROL 115-21 MCG INHALER 1 PUFF 2 PUFF INHALATION ×3 (08:47→20:08)
--- NOTE | 2023-07-23 09:41 | PM.PNGS ---
Progress Note: A&P Assessment and Plan (1) Abdominal wall abscess: Code(s): L02.211 - Cutaneous abscess of abdominal wall Status: Acute Assessment and Plan: cont local wound care, home soon c abx, f/u 2 wks Subjective Subjective Date/Time Seen: 07/23/23 09:41 Interval history: feels ok, feels hot , L groin feels much improved, less pain and swelling Review of Systems Review of Systems: All systems reviewed & are unremarkable except as noted in HPI and below Exam Const: General: cooperative, comfortable, no acute distress, ill appearing and obese Resp: Auscultation: clear to auscultation bilaterally Cardio: Rate: regular rate Rhythm: regular rhythm GI: Inspection: normal to inspection Skin: Other: L groin - good drainage, unpacked, markedly decreased swelling, pain Objective Data Vital Signs Vital Signs: Vital Signs - 24 hr 07/22/23 13:38 07/22/23 16:00 07/22/23 20:50 Temperature 35.8 C L 36.8 C Pulse Rate 83 86 105 H Respiratory Rate 17 20 Blood Pressure 139/71 142/73 H Pulse Oximetry 95 90 Oxygen Delivery Oxygen Flow Rate 07/23/23 00:03 07/23/23 00:00 07/23/23 04:00 Temperature 36.6 C Pulse Rate 111 H 109 H 117 H Respiratory Rate 16 Blood Pressure 109/49 L Pulse Oximetry 95 Oxygen Delivery Oxygen Flow Rate 07/22/23 20:33 07/23/23 04:45 07/23/23 08:54 Temperature 36.6 C Pulse Rate 120 H Respiratory Rate 22 H Blood Pressure 139/78 Pulse Oximetry 94 93 92 Oxygen Delivery Nasal Cannula Nasal Cannula Oxygen Flow Rate 2 2 Intake/Output Intake/Output: Intake & Output 07/20/23 07/21/23 07/22/23 07/23/23 23:59 23:59 23:59 23:59 Intake Total 100 3490 1870 Output Total 1903 2400 Balance 100 1587 -530 Meds/Results Medications: Active Medications Generic Name Dose Route Start Last Admin Trade Name Freq PRN Reason Stop Dose Admin Hydrocodone Bitart/Acetaminophen 1 tab 07/21/23 18:33 07/23/23 06:54 Hydrocodone/Acetaminophen (*Crx) 5-325 Mg Tablet PO 1 tab Q4H PRN Administration Pain Rated 4-6 Acyclovir 400 mg 07/22/23 09:00 07/23/23 08:34 Acyclovir 400 Mg Tablet PO 400 mg DAILY MANUEL Administration Al Hydrox/Mg Hydrox/Simethicone 30 ml 07/22/23 06:44 Mag Hydrox/Al Hydrox/Simeth 30 Ml Udc PO QID PRN Dyspepsia Albuterol 2 puff 07/23/23 05:08 07/23/23 05:32 Albuterol Sulfate (*Sp) Aerosol 1 Puff INHALATION 2 puff Q6HRT PRN Administration Shortness Of Breath Buspirone HCl 5 mg 07/22/23 09:00 07/23/23 08:34 Buspirone Hcl 5 Mg Tablet PO 5 mg BID MANUEL Administration Chlorhexidine Gluconate 1 applic 07/22/23 06:50 Chlorhexidine Gluconate 4% Jordyn 120 Ml Btl TOPICAL ONCE MANUEL Cyclobenzaprine HCl 10 mg 07/22/23 13:20 07/23/23 08:34 Cyclobenzaprine Hcl 10 Mg Tablet PO 10 mg Q8H PRN Administration Muscle Spasm Dextrose 12.5 gm 07/22/23 06:50 Dextrose 50% 25 Gm/50 Ml Syringe IV PUSH PRN PRN Hypoglycemia Protocol Fluoxetine HCl 40 mg 07/22/23 09:00 07/23/23 08:34 Fluoxetine Hcl 20 Mg Capsule PO 40 mg DAILY MANUEL Administration Fluticasone Propionate 2 spray 07/22/23 09:00 07/23/23 00:15 Fluticasone Propionate 0.05% Na Spr 16 Gm Btl (*Bkc) NASAL Not Given Q12HR MANUEL Glucagon 1 mg 07/22/23 06:50 Glucagon For Inj 1 Mg Vial IM PRN PRN Hypoglycemia Protocol Glucose 15 gm 07/22/23 06:50 Glucose Oral Gel 15 Gm Of Glucse In 37.5 Gm Tube PO PRN PRN Hypoglycemia Protocol Sodium Chloride 1,000 mls @ 125 mls/hr 07/21/23 18:35 07/23/23 03:00 Normal Saline Iv IV CONT 125 mls/hr .Q8H MANUEL Administration Cefazolin Sodium 1 gm in 50 mls @ 100 mls/hr 07/21/23 22:00 07/23/23 08:46 Ancef 1 Gm/Ns 50 Ml IVPB 100 mls/hr Q8HR MANUEL Infusion Dextrose 1,000 mls @ 100 mls/hr 07/22/23 06:50 Dextrose 5% 1,000 Ml IVPB PRN PRN Hypogly
[2023-07-23 12:10] LABS: Glucose Point of Care 295 mg/dl (65-105)
[2023-07-23] MEDS: FLUTICASONE PROPIONATE 0.05% NA SPR 16 GM BTL (*BKC) 2 SPRAY NASAL ×2 (12:39→20:40)
[2023-07-23] MEDS: INSULIN ASPART (*BKC) 100 UNITS/ML SUB-Q ×3 (12:39→20:39)
--- NOTE | 2023-07-23 12:50 | PM.IMPN ---
Progress Note: A&P Assessment and Plan (1) Obesity: Code(s): E66.9 - Obesity, unspecified Status: Acute (2) Abdominal wall abscess: Code(s): L02.211 - Cutaneous abscess of abdominal wall Status: Acute (3) MYRNA (obstructive sleep apnea): Code(s): G47.33 - Obstructive sleep apnea (adult) (pediatric) Status: Acute (4) Hypertension: Code(s): I10 - Essential (primary) hypertension Status: Acute (5) Hyperlipidemia: Code(s): E78.5 - Hyperlipidemia, unspecified Status: Acute (6) GERD (gastroesophageal reflux disease): Code(s): K21.9 - Gastro-esophageal reflux disease without esophagitis Status: Acute (7) Diabetes: Code(s): E11.9 - Type 2 diabetes mellitus without complications Status: Acute (8) Asthma: Code(s): J45.909 - Unspecified asthma, uncomplicated Status: Acute Plan 57F w/ PMH anxiety, arthritis, anxiety, asthma, CAD, IDDM, GERD, HLD, HTN, MYRNA, morbid obesity who presented with groin abscess. s/p I&D at bedside on 07/22 1) groin abscess - s/p I&D on 07/22. culture pending. leukocytosis again increased on 07/23 along with chills. blood cultures pending. cefazolin started 07/21. vancomycin added 07/23. check procalcitonin in AM as well - sepsis w/o shock, hold off on fluids as she is hemodynamically stable and recently required oxygen 2) hypoxic respiratory failure? undetermined - cannot find documentation of hypoxia anywhere in charting. while in room, pt said she did not need it and ripped it off. will order continuous pulse ox. CXR clear. lung exam clear. she does have MYRNA and asthma. CTM 3) CAD 4) GERD - cont PPI 5) IDDM - BS uncontrolled. likely 2/2 infection - her home dosing is lantus 80 units QHS. will increase her sliding scale to high dose. cont accuchecks FEN: cardiac diabetic diet. fluids stopped GI prophylaxis: cont PPI DVT prophylaxis: SCD's. consider heparin tomorrow Lines: pIV Code Status: Full Code Dispo: stable. More than 35 minutes spent on chart review, patient interaction and assessment and plan. Subjective Date/time seen: 07/23/23 12:50 Interval history: pt reports chills and sweating overnight. resolved now. she does complain of pain at previous abscess site, and constipation since . she denies sob or wheeze or cough Review of Systems Review of Systems: All systems reviewed & are unremarkable except as noted in HPI and below Exam Const: General: comfortable and no acute distress Other: obese, A&O x3 Eyes: Pupils: Equal, round and reactive pupils present Resp: Effort & Inspection: normal respiratory effort Auscultation: clear to auscultation bilaterally and no wheezes Cardio: Rate: regular rate Rhythm: regular rhythm Heart sounds: no gallops, no murmurs and no rubs GI: Inspection: distended GI Palp: No Tenderness to palpation present (GI) Auscultation: normal bowel sounds Skin: Other: TTP at surgical site, much smaller than yesterday Extrem: General: no edema Objective Data Vital Signs Vital Signs: Vital Signs - 24 hr 07/22/23 13:38 07/22/23 16:00 07/22/23 20:50 Temperature 96.5 F L 98.2 F Pulse Rate 83 86 105 H Respiratory Rate 17 20 Blood Pressure 139/71 142/73 H Pulse Oximetry 95 90 Oxygen Delivery Oxygen Flow Rate 07/23/23 00:03 07/23/23 00:00 07/23/23 04:00 Temperature 97.9 F Pulse Rate 111 H 109 H 117 H Respiratory Rate 16 Blood Pressure 109/49 L Pulse Oximetry 95 Oxygen Delivery Oxygen Flow Rate 07/22/23 20:33 07/23/23 04:45 07/23/23 08:54 Temperature 98 F Pulse Rate 120 H Respiratory Rate 22 H Blood Pressure 139/78 Pulse Oximetry 94 93 92 Oxygen Delivery Nasal Cannula Nasal Cannula Oxygen Flow Rate 2 2 07/23/23 10:24 Temperature 99.2 F Pulse Rate 89 Respiratory Rate 18 Blood Pressure 122/54 L Pulse Oximetry 96 Oxygen Delivery Oxygen Flow Rate Intake/Output Intake/O
[2023-07-23 18:26] LABS: Glucose Point of Care 295 mg/dl (65-105)
--- NOTE | 2023-07-23 19:49 | PC.NURSE ---
called respiratory therapist pt requesting inhaler
[2023-07-23] MEDS: PRAZOSIN HCL 1 MG CAPSULE 2 MG PO (20:39)
[2023-07-23] MEDS: traZODone HCL 50 MG TABLET 100 MG PO (20:39)
[2023-07-23] MEDS: MONTELUKAST SODIUM 10 MG TABLET PO (20:39)
[2023-07-23] MEDS: SENNA/DOCUSATE SODIUM TABLET 1 TAB PO (20:39)
[2023-07-23 20:44] LABS: Glucose Point of Care 319 mg/dl (65-105)
[2023-07-23] MEDS: diphenhydrAMINE HCl CAP 25 MG CAPSULE PO (22:38)
[2023-07-24] VITALS (18 sets, daily range): BP systolic 130–166; BP diastolic 64–103; PULSE 86–108; RESP 18–24; TEMP 35.8–36.8; O2SAT 90–99
[2023-07-24] MEDS: HYDROcodone/acetaminophen (*CRX) 5-325 MG TABLET 1 TAB PO ×2 (00:03→06:42)
--- NOTE | 2023-07-24 00:20 | PC.NURSE ---
pt c/o not sleeping good and continues to be tearful and emotional, informed MD Saldaña, 1 mg ativan IV push and 25 mg benadryl IV push ordered once for patient.
[2023-07-24] MEDS: diphenhydrAMINE HCl INJ 50 MG/ML VIAL 25 MG IV PUSH (00:41)
[2023-07-24] MEDS: LORazepam INJ (*CRX) 2 MG/ML VIAL 1 MG IV PUSH (00:41)
--- NOTE | 2023-07-24 01:21 | PC.NURSE ---
Daylight Savings Time For Daylight Savings Time Ending in the Fall - Clocks are moved back. For Daylight Savings Time Beginning in the Spring - Clocks are moved ahead. For [facility], the time of change occurs at 0200 hrs. Time is taken from the content developer. This entry on the patient's chart recognizes the change in time reflected during documentation. Example: 2 entries for vital signs may be charted for 0200 hrs.
[2023-07-24] MEDS: ALBUTEROL SULFATE (*SP) AEROSOL 1 PUFF 2 PUFF INHALATION (03:43)
[2023-07-24] MEDS: ceFAZolin 1 GM/NS 50 ML 1 GM/50 ML BAG IVPB ×3 (05:04→20:50)
--- NOTE | 2023-07-24 06:28 | PC.NURSE ---
pt continues to be tearful this morning, ordered 1 mg xanax PO per Md Saldaña.
[2023-07-24 06:40] LABS: Basophils Absolute Auto 0.1 K/mm3 (0.0-0.1); Basophils Percent Auto 0.6 % (0.2-1.2); Eosinophils Absolute Auto 0.1 K/mm3 (0-0.3); Eosinophils Percent Auto 1.4 % (0-4.4); Hematocrit 33.3 % (37.0-47.0); Hemoglobin 9.2 g/dL (12.0-15.0); Immature Granulocyte Percent A 1.2 % (0-0.5); Lymphocytes Absolute Auto 0.82 K/mm3 (0.9-3.2); Lymphocytes Percent Auto 9.9 % (18.3-44.2); Mean Corpuscular HGB Conc 27.6 g/dl (32-36); Mean Corpuscular Hemoglobin 20.9 pg (26-34); Mean Corpuscular Volume 75.7 fl (80-100); Mean Platelet Volume 9.9 fl (7.4-10.4); Monocytes Absolute Auto 0.8 K/mm3 (0.1-0.6); Neutrophils Absolute Auto 6.4 K/mm3 (1.3-6.7); Neutrophils Percent Auto 76.9 % (45.5-73.1); Nucleated Red Blood Cells Perc 0.2 % (0.0-0.2); Platelet Count Result 263 k/mm3 (150-375); Red Cell Distribution Width 17.5 % (11.5-14.5); White Blood Count 8.3 K/mm3 (4.5-10.0)
[2023-07-24] MEDS: ALPRAZolam (*CRX) 0.5 MG TABLET 1 MG PO (06:41)
[2023-07-24 06:49] LABS: Anion Gap 2 mmol/L (8-16); Blood Urea Nitrogen 6 mg/dL (7-17); Calcium 8.6 mg/dL (8.4-10.2); Carbon Dioxide 34 mmol/L (22-30); Chloride 96 mmol/L (98-107); Estimated CRCL calculation 119 ml/min; Estimated Glomerular Filt Rate > 60; Glucose 236 mg/dL (65-110); Potassium 3.7 mmol/L (3.4-5.0); Sodium 132 mmol/L (137-145)
[2023-07-24 07:15] LABS: Hypochromasia 3+ (NORMAL); Platelet Estimate Adequate (Adequate); Poikilocytosis 1+ (NORMAL)
[2023-07-24 07:16] LABS: Anisocytosis 1+ (NORMAL); Schistocytes None Seen (NORMAL)
[2023-07-24 07:19] LABS: Procalcitonin 0.4 ng/mL
[2023-07-24] MEDS: FLUTICASONE/SALMETEROL 115-21 MCG INHALER 1 PUFF 2 PUFF INHALATION ×2 (07:37→20:10)
[2023-07-24 08:20] LABS: Glucose Point of Care 203 mg/dl (65-105)
[2023-07-24] MEDS: busPIRone HCL 5 MG TABLET PO ×2 (10:03→17:40)
[2023-07-24] MEDS: METOPROLOL TARTRATE 50 MG TAB 100 MG PO (10:03)
[2023-07-24] MEDS: PANTOPRAZOLE 40 MG TABLET PO ×2 (10:03→20:41)
[2023-07-24] MEDS: ACYCLOVIR 400 MG TABLET PO (10:04)
[2023-07-24] MEDS: INSULIN ASPART (*BKC) 100 UNITS/ML SUB-Q ×4 (10:04→21:01)
[2023-07-24] MEDS: FLUoxetine HCL 20 MG CAPSULE 40 MG PO (10:08)
[2023-07-24] MEDS: CYCLOBENZAPRINE HCL 10 MG TABLET PO ×2 (10:15→20:48)
[2023-07-24] MEDS: FLUTICASONE PROPIONATE 0.05% NA SPR 16 GM BTL (*BKC) 2 SPRAY NASAL ×2 (10:17→20:51)
--- NOTE | 2023-07-24 10:24 | PM.IMPN ---
Progress Note: A&P Assessment and Plan (1) Obesity: Code(s): E66.9 - Obesity, unspecified Status: Acute (2) Abdominal wall abscess: Code(s): L02.211 - Cutaneous abscess of abdominal wall Status: Acute (3) MYRNA (obstructive sleep apnea): Code(s): G47.33 - Obstructive sleep apnea (adult) (pediatric) Status: Acute (4) Hypertension: Code(s): I10 - Essential (primary) hypertension Status: Acute (5) Hyperlipidemia: Code(s): E78.5 - Hyperlipidemia, unspecified Status: Acute (6) GERD (gastroesophageal reflux disease): Code(s): K21.9 - Gastro-esophageal reflux disease without esophagitis Status: Acute (7) Diabetes: Code(s): E11.9 - Type 2 diabetes mellitus without complications Status: Acute (8) Asthma: Code(s): J45.909 - Unspecified asthma, uncomplicated Status: Acute (9) Asthma exacerbation: Code(s): J45.901 - Unspecified asthma with (acute) exacerbation Status: Acute Plan 57F w/ PMH anxiety, arthritis, anxiety, asthma, CAD, IDDM, GERD, HLD, HTN, MYRNA, morbid obesity, tobacco abuse who presented with groin abscess. s/p I&D at bedside on 07/22 1) groin abscess. resolving - s/p I&D on 07/22. culture w/ mixed cali. leukocytosis resolved. cont cefazolin started vanc stopped 07/24 - sepsis w/o shock, resolved. - wound care 2) asthma exacerbation with acute hypoxic respiratory failure - 07/23- developing hypoxia with chest tightness, wheeze, SOB. no evidence of PNA on CXR, could repeat tomorrow. she reports her oxygen is always low but has never been prescribed oxygen at home. - wean o2 if possible. start duonebs and solumedrol 40mg IV TID. monitor BS very closely. ordered peak flow meter to monitor response 3) MYRNA - suspect pt is noncompliant. ordered cpap nightly 4) tobacco abuse - reports slowing down to a few cigaretttes here and there - counseled. ordered education 5) CAD - adverse effect of nose bleed with aspirin, will have to assess need for statin 6) GERD - cont PPI 7) IDDM - BS uncontrolled. HBA1c 11.9 on admission. takes lantus 80 units at home, added 6 units novolog TID especially in light of solumedrol being added. counseled, needs close follow up. diabetes education ordered - cont accuchecks with HDISS 8) HTN - CTM FEN: cardiac diabetic diet. saline lock IV GI prophylaxis: cont PPI DVT prophylaxis: lovenox Lines: pIV Code Status: Full Code Dispo: stable. can go home when asthma exacerbation is resolved. consider oral abx for abscess, although source has been controlled. More than 35 minutes spent on chart review, patient interaction and assessment and plan. Subjective Date/time seen: 07/24/23 10:24 Interval history: pt is anxious, she wants to go home. however, she reports a cough with clear sputum production, wheezing, chest tightness, and shortness of breath. no chest pain Review of Systems Review of Systems: All systems reviewed & are unremarkable except as noted in HPI and below Exam Const: General: comfortable Other: obese Eyes: Pupils: Equal, round and reactive pupils present Neck: Neck: supple Resp: Auscultation: no rales and no rhonchi Other: active cough upon inspiration. expiratory wheeze. diminished breath sounds diffusely Cardio: Rate: regular rate Rhythm: regular rhythm Heart sounds: no gallops, no murmurs and no rubs GI: GI Palp: Yes Soft to palpation and No Tenderness to palpation present (GI) Auscultation: normal bowel sounds Skin: Other: I&D site c/d/i. no drainage. ttp resolved. edema resolved. Extrem: General: no edema Objective Data Vital Signs Vital Signs: Vital Signs - 24 hr 07/23/23 12:00 07/23/23 16:00 07/23/23 19:55 Temperature Pulse Rate 92 85 Respiratory Rate Blood Pressure Pulse Oximetry 96 Oxygen Delivery Nasal Cannula Oxygen Flow Rate 2 Fraction of Inspired Oxygen 07/23/23 20
[2023-07-24] MEDS: ENOXAPARIN 40 MG/0.4 ML SYRINGE SUB-Q (12:06)
[2023-07-24] MEDS: INSULIN ASPART (*BKC) 100 UNITS/ML 6 UNITS SUB-Q ×2 (12:07→17:41)
[2023-07-24 12:08] LABS: Glucose Point of Care 364 mg/dl (65-105)
[2023-07-24] MEDS: MORPHINE SULFATE (*CRX) 2 MG/ML INJ IV PUSH ×2 (13:50→20:49)
[2023-07-24] MEDS: methylPREDNISolone SOD SUCC 125 MG VIAL 40 MG IV PUSH ×2 (14:08→20:49)
[2023-07-24] MEDS: LEVALBUTEROL NEB 1.25 MG/3 ML INHALATION ×2 (14:58→20:10)
[2023-07-24] MEDS: IPRATROPIUM BR 0.02% INH SOLN 0.5 MG/2.5 ML VIAL INHALATION ×2 (14:58→20:10)
[2023-07-24 17:06] LABS: Glucose Point of Care 325 mg/dl (65-105)
[2023-07-24] MEDS: ALPRAZolam (*CRX) 0.5 MG TABLET PO (20:40)
[2023-07-24] MEDS: traZODone HCL 50 MG TABLET 100 MG PO (20:40)
[2023-07-24] MEDS: MONTELUKAST SODIUM 10 MG TABLET PO (20:41)
[2023-07-24] MEDS: SENNA/DOCUSATE SODIUM TABLET 1 TAB PO (20:41)
[2023-07-24] MEDS: PRAZOSIN HCL 1 MG CAPSULE 2 MG PO (20:48)
[2023-07-24] MEDS: INSULIN GLARGINE (*BKC) 100 UNITS/ML 80 UNITS SUB-Q (21:00)
[2023-07-25] VITALS (18 sets, daily range): BP systolic 123–126; BP diastolic 54–65; PULSE 75–96; RESP 18–22; TEMP 35.9–36.1; O2SAT 92–100; BMI 38.2
[2023-07-25] MEDS: HYDROcodone/acetaminophen (*CRX) 5-325 MG TABLET 1 TAB PO ×2 (01:05→09:10)
[2023-07-25] MEDS: LEVALBUTEROL NEB 1.25 MG/3 ML INHALATION ×3 (01:05→13:37)
[2023-07-25] MEDS: IPRATROPIUM BR 0.02% INH SOLN 0.5 MG/2.5 ML VIAL INHALATION ×3 (01:06→13:37)
[2023-07-25] MEDS: methylPREDNISolone SOD SUCC 125 MG VIAL 40 MG IV PUSH ×2 (06:10→12:26)
[2023-07-25] MEDS: ceFAZolin 1 GM/NS 50 ML 1 GM/50 ML BAG IVPB ×2 (06:10→12:26)
[2023-07-25 06:21] LABS: Glucose Point of Care 388 mg/dl (65-105)
[2023-07-25 06:32] LABS: Hematocrit 36.4 % (37.0-47.0); Hemoglobin 10.2 g/dL (12.0-15.0); Mean Corpuscular Hemoglobin 21.3 pg (26-34); Mean Corpuscular Volume 75.8 fl (80-100); Mean Platelet Volume 9.6 fl (7.4-10.4); Platelet Count Result 322 k/mm3 (150-375); Red Cell Distribution Width 17.6 % (11.5-14.5); White Blood Count 8.1 K/mm3 (4.5-10.0)
[2023-07-25 06:43] LABS: Anion Gap 9 mmol/L (8-16); Blood Urea Nitrogen 13 mg/dL (7-17); Calcium 9.5 mg/dL (8.4-10.2); Carbon Dioxide 30 mmol/L (22-30); Chloride 97 mmol/L (98-107); Estimated CRCL calculation 141 ml/min; Estimated Glomerular Filt Rate > 60; Glucose 292 mg/dL (65-110); Potassium 4.4 mmol/L (3.4-5.0); Sodium 136 mmol/L (137-145)
[2023-07-25 07:06] LABS: Procalcitonin 0.3 ng/mL
[2023-07-25 08:09] LABS: Glucose Point of Care 335 mg/dl (65-105)
[2023-07-25] MEDS: FLUTICASONE/SALMETEROL 115-21 MCG INHALER 1 PUFF 2 PUFF INHALATION (08:27)
[2023-07-25] MEDS: ENOXAPARIN 40 MG/0.4 ML SYRINGE SUB-Q (09:09)
[2023-07-25] MEDS: METOPROLOL TARTRATE 50 MG TAB 100 MG PO (09:09)
[2023-07-25] MEDS: FLUoxetine HCL 20 MG CAPSULE 40 MG PO (09:10)
[2023-07-25] MEDS: ACYCLOVIR 400 MG TABLET PO (09:10)
[2023-07-25] MEDS: PANTOPRAZOLE 40 MG TABLET PO (09:10)
[2023-07-25] MEDS: busPIRone HCL 5 MG TABLET PO (09:12)
[2023-07-25] MEDS: INSULIN ASPART (*BKC) 100 UNITS/ML 6 UNITS SUB-Q ×2 (09:13→12:25)
[2023-07-25] MEDS: INSULIN ASPART (*BKC) 100 UNITS/ML SUB-Q (09:13)
--- NOTE | 2023-07-25 09:18 | PM.IMPN ---
Progress Note: A&P Assessment and Plan (1) Obesity: Code(s): E66.9 - Obesity, unspecified Status: Acute (2) Abdominal wall abscess: Code(s): L02.211 - Cutaneous abscess of abdominal wall Status: Acute Assessment and Plan: - s/p I&D on 07/22. culture w/ mixed cali. leukocytosis resolved. cont cefazolin started vanc stopped 07/24 - sepsis w/o shock, resolved. - wound care (3) MYRNA (obstructive sleep apnea): Code(s): G47.33 - Obstructive sleep apnea (adult) (pediatric) Status: Acute (4) Hypertension: Code(s): I10 - Essential (primary) hypertension Status: Acute (5) Hyperlipidemia: Code(s): E78.5 - Hyperlipidemia, unspecified Status: Acute (6) GERD (gastroesophageal reflux disease): Code(s): K21.9 - Gastro-esophageal reflux disease without esophagitis Status: Acute (7) Diabetes: Code(s): E11.9 - Type 2 diabetes mellitus without complications Status: Acute Assessment and Plan: - BS uncontrolled. HBA1c 11.9 on admission. takes lantus 80 units at home, added 6 units novolog TID especially in light of solumedrol being added. counseled, needs close follow up. diabetes education ordered - cont accuchecks with HDISS (8) Asthma: Code(s): J45.909 - Unspecified asthma, uncomplicated Status: Acute (9) Asthma exacerbation: Code(s): J45.901 - Unspecified asthma with (acute) exacerbation Status: Acute Assessment and Plan: - 07/23- developing hypoxia with chest tightness, wheeze, SOB. no evidence of PNA on CXR, could repeat tomorrow. she reports her oxygen is always low but has never been prescribed oxygen at home. - wean o2 if possible. start duonebs and solumedrol 40mg IV TID. monitor BS very closely. ordered peak flow meter to monitor response Plan FEN: cardiac diabetic diet. saline lock IV GI prophylaxis: cont PPI DVT prophylaxis: lovenox Lines: pIV Code Status: Full Code Dispo: stable. can go home when asthma exacerbation is resolved. consider oral abx for abscess, although source has been controlled. Subjective Date/time seen: 07/25/23 09:19 Interval history: 57F w/ PMH anxiety, arthritis, anxiety, asthma, CAD, IDDM, GERD, HLD, HTN, MYRNA, morbid obesity, tobacco abuse who presented with groin abscess. s/p I&D at bedside on 07/22. Pt is anxious, she wants to go home. However, she reports a cough with clear sputum production, wheezing, chest tightness, and shortness of breath. No chest pain. Review of Systems Review of Systems: 12 point review of systems was assessed and was negative except as noted in the HPI Exam Narrative: General: No acute distress, alert and oriented per baseline HEENT: Atraumatic, normocephalic, mucous membranes moist CV: Regular rate and rhythm, S1, S2 Lungs: Clear to auscultation bilaterally, no rales or crackles noted, no wheezes, good air entry Abdomen: Soft, nontender, nondistended Extremities: Normal to inspection Skin: No rashes noted, no lesions or wounds seen Psych: Euthymic, normal affect Objective Data Vital Signs Vital Signs: Vital Signs - 24 hr 07/24/23 10:03 07/24/23 14:00 07/24/23 15:04 Temperature 97.2 F L Pulse Rate 107 H 96 98 Respiratory Rate 20 20 Blood Pressure Pulse Oximetry 92 Oxygen Delivery Oxygen Flow Rate Fraction of Inspired Oxygen 07/24/23 15:13 07/24/23 16:00 07/24/23 12:00 Temperature 98.3 F Pulse Rate 94 88 86 Respiratory Rate 20 22 H Blood Pressure 163/77 H Pulse Oximetry 96 Oxygen Delivery Oxygen Flow Rate Fraction of Inspired Oxygen 07/24/23 16:00 07/24/23 20:11 07/24/23 20:12 Temperature Pulse Rate 88 88 Respiratory Rate 18 Blood Pressure Pulse Oximetry 97 Oxygen Delivery Nasal Cannula Oxygen Flow Rate 3.5 Fraction of Inspired Oxygen 34 07/24/23 20:29 07/24/23 20:00 07/24/23 22:00 Temperature 97.4 F L Pulse Rate 86 86 9
[2023-07-25 11:35] LABS: Glucose Point of Care 415 mg/dl (65-105)
[2023-07-25] MEDS: CYCLOBENZAPRINE HCL 10 MG TABLET PO (12:31)
[2023-07-25] MEDS: INSULIN ASPART (*BKC) 100 UNITS/ML 10 UNITS SUB-Q (13:56)
[2023-07-25] MEDS: AMOXICILLIN/CLAVULANATE K 875-125 MG TAB 1 TABLET PO (15:39)
--- NOTE | 2023-07-26 17:08 | PM.DS ---
DS: Admitting Diagnosis Discharge Date 07/25/23 Admitting Diagnosis groin abscess DS: Discharge Diagnosis Discharge Diagnosis (1) Obesity: Code(s): E66.9 - Obesity, unspecified Status: Acute (2) Abdominal wall abscess: Code(s): L02.211 - Cutaneous abscess of abdominal wall Status: Acute Assessment and Plan: - s/p I&D on 07/22. culture w/ mixed cali. leukocytosis resolved. cont cefazolin started vanc stopped 07/24 - sepsis w/o shock, resolved. - wound care (3) MYRNA (obstructive sleep apnea): Code(s): G47.33 - Obstructive sleep apnea (adult) (pediatric) Status: Acute (4) Hypertension: Code(s): I10 - Essential (primary) hypertension Status: Acute (5) Hyperlipidemia: Code(s): E78.5 - Hyperlipidemia, unspecified Status: Acute (6) GERD (gastroesophageal reflux disease): Code(s): K21.9 - Gastro-esophageal reflux disease without esophagitis Status: Acute (7) Diabetes: Code(s): E11.9 - Type 2 diabetes mellitus without complications Status: Acute Assessment and Plan: - BS uncontrolled. HBA1c 11.9 on admission. takes lantus 80 units at home, added 6 units novolog TID especially in light of solumedrol being added. counseled, needs close follow up. diabetes education ordered - cont accuchecks with HDISS (8) Asthma: Code(s): J45.909 - Unspecified asthma, uncomplicated Status: Acute (9) Asthma exacerbation: Code(s): J45.901 - Unspecified asthma with (acute) exacerbation Status: Acute Assessment and Plan: - 07/23- developing hypoxia with chest tightness, wheeze, SOB. no evidence of PNA on CXR, could repeat tomorrow. she reports her oxygen is always low but has never been prescribed oxygen at home. - wean o2 if possible. start duonebs and solumedrol 40mg IV TID. monitor BS very closely. ordered peak flow meter to monitor response Plan FEN: cardiac diabetic diet. saline lock IV GI prophylaxis: cont PPI DVT prophylaxis: lovenox Lines: pIV Code Status: Full Code Dispo: stable. can go home when asthma exacerbation is resolved. consider oral abx for abscess, although source has been controlled. DS: Summary Hospital Course Hospital Course: 57F w/ PMH anxiety, arthritis, anxiety, asthma, CAD, IDDM, GERD, HLD, HTN, MYRNA, morbid obesity, tobacco abuse who presented with groin abscess. s/p I&D at bedside on 07/22. - s/p I&D on 07/22. culture w/ mixed cali. leukocytosis resolved. cont cefazolin started . vanc stopped 07/24 - sepsis w/o shock, resolved. - wound care Patient's symptoms dramatically involved and she requested to go home. She was discharged in stable condition with close outpatient follow-up on oral antibiotics. Please see above and med rec for details. Time Spent with Patient Time attestation: Total time spent providing and/or coordinating discharge services: Exam Narrative: General: No acute distress, alert and oriented per baseline HEENT: Atraumatic, normocephalic, mucous membranes moist CV: Regular rate and rhythm, S1, S2 Lungs: Clear to auscultation bilaterally, no rales or crackles noted, no wheezes, good air entry Abdomen: Soft, nontender, nondistended Extremities: Normal to inspection Skin: No rashes noted, no lesions or wounds seen Psych: Euthymic, normal affect Discharge Plan Discharge Attending physician on discharge: Patti Cobb Consulting providers: Estefani Bob; Gonzalo Mckeon; Melissa Oakes; Ap Ramirez; Sumeet Edwards; Ever Murray V. Discharging Clinician: Patti Cobb Patient Disposition: Home, Self-Care Activity: may shower Diet: diabetic Wound Care Instructions: remove dressing to shower and change dressing daily Discharge Instructions: no further packing needed ok to shower c soap and water dry dressing over incision Patient Instructions: Antibiotic Form, How to Stop Smoking (DC) Stand Alone Forms: Gener
--- NOTE | 2023-07-26 18:01 | WPDHPUPDATE1 ---
History and Physical Update Update Date/Time: 07/26/23 18:01 History and Physical has been reviewed, including an updated exam of the patient. There are NO changes in the patient's condition. Risks, benefits, and alternatives have been discussed and questions answered. Patient agrees to proceed with procedure.
== END 2023-07-25 16:32 | disposition home or self-care (01) | DRG 710 ==
LOC: ANHED 18:48 → ANH3MEDSUR 18:50
PROVIDERS: Family Medicine; General Practice; Admitting Provider Family Medicine; Emergency Provider Family Medicine; PCP Family Medicine; Visit Provider Student in an Organized Health Care Education/Training Program
DX: A41.9 Sepsis, unspecified organism (principal); J45.901 Unspecified asthma with (acute) exacerbation; L02.211 Cutaneous abscess of abdominal wall; I10 Essential (primary) hypertension; I25.10 Atherosclerotic heart disease of native coronary artery without angina pectoris; E11.65 Type 2 diabetes mellitus with hyperglycemia; E78.5 Hyperlipidemia, unspecified; E66.9 Obesity, unspecified; K21.9 Gastro-esophageal reflux disease without esophagitis; G47.33 Obstructive sleep apnea (adult) (pediatric); M19.90 Unspecified osteoarthritis, unspecified site; F17.210 Nicotine dependence, cigarettes, uncomplicated; F41.9 Anxiety disorder, unspecified; Z79.4 Long term (current) use of insulin
CPT/HCPCS: 36415; 71046; 74177; 80048; 80053; 81001; 82948; 83036; 83690; 83735; 84100; 84145; 85025; 85027; 87070; 87077; 87086; 87147; 87186; 87205; 93005; 94640; 96365; 96375; 99285; A9270; J0690; J1170; J1200; J1650; J1815; J1885; J2060; J2270; J2405; J2930; J3370; J7030; Q9967